=== PATIENT | female | born 1990 | race Caucasian/White ===

== ENCOUNTER 2018-01-03 09:55 | Emergency (ER) | payer OTHER ==
[2018-01-03] MEDS ORDERED: NS 1,000 ML IV ONE (10:32)
--- NOTE | 2018-01-03 10:32 | EDPHY ---
H & P Time Seen by Provider: 01/03/18 10:21 HPI/ROS: CHIEF COMPLAINT: Abdominal pain HISTORY OF PRESENT ILLNESS: 27-year-old female presents to the emergency department with right lower quadrant abdominal pain that began abruptly this morning. The patient thought that she had mild cramping last night but this resolved. She slept fine and then woke up this morning with severe sharp stabbing pain in her right lower quadrant. She tried going to the bathroom and felt that the pain has slightly improved but then became extremely nauseous and had a near syncopal episode. Those symptoms have now resolved. She continues to have ongoing right-sided abdominal pain. No flank pain. No urinary symptoms. She has a Mirena IUD and denies . Denies chest pain or difficulty breathing. Denies dysuria, urgency or frequency with urination. REVIEW OF SYSTEMS: Constitutional: No fever, no chills. Eyes: No double or blurry vision. ENT: No sore throat. Respiratory: No cough, no shortness of breath. Cardiac: No chest pain. Gastrointestinal: Abdominal pain as above. No vomiting or diarrhea Genitourinary: No dysuria. Musculoskeletal: No neck or back pain. Skin: No rashes. Neurological: No headache. Past Medical/Surgical History: Mirena IUD Social History: Single Smoking Status: Never smoked Physical Exam: General Appearance: Alert, no distress. Afebrile. Eyes: Pupils equal and round. Extraocular motions are all intact. ENT: Mouth: Mucous membranes moist. Respiratory: No wheezing, rhonchi, or rales, lungs are clear to auscultation. Cardiovascular: Regular rate and rhythm. Gastrointestinal: Abdomen is soft. She has tenderness with palpation in the right lower quadrant. Nontender to palpate the suprapubic area. No rebound, guarding or masses noted. No CVA tenderness bilaterally. Neurological: Alert and oriented x 3, cranial nerves II through XII grossly intact Skin: Warm and dry, no rashes. Musculoskeletal: Nontender to palpate along the cervical, thoracic or lumbar spine. Neck is supple. Extremities: Full range of motion and no peripheral edema. Psychiatric: Patient is oriented X 3, there is no agitation. Constitutional: Initial Vital Signs Temperature (C) 37.0 C 01/03/18 10:01 Heart Rate 96 01/03/18 10:01 Respiratory Rate 18 01/03/18 10:01 Blood Pressure 113/74 01/03/18 10:01 O2 Sat (%) 98 01/03/18 10:01 O2 Delivery Mode Room Air Allergies/Adverse Reactions: penicillin G Allergy (Verified 01/03/18 10:05) Home Medications: Medication Instructions Recorded Clindamycin HCl [Clindamycin] 300 mg PO 01/03/18 Lisdexamfetamine Dimesylate 30 mg PO 01/03/18 [Vyvanse] Medical Decision Making - Diagnostics Imaging Results: Imaging Impressions Abdomen Ultrasound 01/03/18 10:31 Impression: Appendix not identified. Findings and recommendations discussed with Emergency Department physician, Johanna Carranza PA-C at 1146 hours on January 03, 2018. Final report concurs with initial preliminary interpretation. Pelvic/Renal Ultrasound 01/03/18 10:31 Impression: 1. Right ovarian 2 complex cysts probably representing hemorrhagic cysts, with the largest measuring 4.3 x 2.9 x 2 cm. 2. Small amount of free fluid in the right side of the pelvis. 3. No ovarian torsion. 4. Small amount of free fluid adjacent to the right adnexa. Findings and recommendations discussed with Emergency Department physician, Johanna Carranza PA-C at 1125 hours on January 03, 2018. Final report concurs with initial preliminary interpretation. Imaging: Discussed imaging studies w/ scallop shucker Radiologist ED Course/Re-evaluation: 27-year-old female presents to the emergency department with abdominal pain. Is concerned about possible ovarian cyst. Pelvic ultrasound reveals complex ovarian cyst on the right ovary measuring 4 x 3 x 2 cm. No evidence of torsion. Abdominal ultrasound unable to visualize appendix. I offered CT imaging of the abdomen pelvis since appendix was not visualized, however the patient declined. Patient was treated with IV Toradol and was feeling better. She was given OBGYN referral. She was instructed to return to the emergency department if she developed any change in symptoms or felt worse. Differential Diagnosis: Including but not limited to acute appendicitis, ovarian cyst, ovarian torsion, urinary tract infection, pyelonephritis, kidney stone - Data Points Laboratory Results: Laboratory Results 01/03/18 10:24 01/03/18 10:24 01/03/18 01/03/18 01/03/18 10:24 10:24 10:24 WBC RBC Hgb Hct MCV MCH MCHC RDW Plt Count MPV Neut % (Auto) Lymph % (Auto) [place] % (Auto) Eos % (Auto) Baso % (Auto) Nucleat RBC Rel Count Absolute Neuts (auto) Absolute Lymphs (auto) Absolute Monos (auto) Absolute Eos (auto) Absolute Basos (auto) Absolute Nucleated RBC Immature Gran % Immature Gran # Sodium 142 mEq/L mEq/L (135-145) Potassium 4.3 mEq/L mEq/L (3.3-5.0) Chloride 110 mEq/L mEq/L (97-110) Carbon Dioxide 22 mEq/l mEq/l (22-31) Anion Gap 10 mEq/L mEq/L (8-16) BUN 13 mg/dL mg/dL (7-23) Creatinine 0.8 mg/dL mg/dL (0.6-1.0) Estimated GFR > 60 Glucose 84 mg/dL mg/dL (70-100) Calcium 9.4 mg/dL mg/dL (8.5-10.4) Beta HCG, Qual NEGATIVE Urine Color YELLOW Urine Appearance CLEAR Urine pH 6.0 (5.0-7.5) Ur Specific [place] 1.021 (1.002-1.030) Urine Protein NEGATIVE (NEGATIVE) Urine Ketones NEGATIVE (NEGATIVE) Urine Blood NEGATIVE (NEGATIVE) Urine Nitrate NEGATIVE (NEGATIVE) Urine Bilirubin NEGATIVE (NEGATIVE) Urine Urobilinogen NEGATIVE EU EU (0.2-1.0) Ur Leukocyte Esterase NEGATIVE (NEGATIVE) Urine RBC 15-25 /hpf H /hpf (0-3) Urine WBC 1-3 /hpf /hpf (0-3) Ur Epithelial Cells TRACE /lpf /lpf (NONE-1+) Urine Bacteria TRACE /hpf H /hpf (NONE SEEN) Urine Mucus TRACE /lpf /lpf (NONE-1+) Urine Glucose NEGATIVE (NEGATIVE) 01/03/18 10:24 WBC 5.51 10^3/uL 10^3/uL (3.80-9.50) RBC 5.00 10^6/uL 10^6/uL (4.18-5.33) Hgb 14.9 g/dL g/dL (12.6-16.3) Hct 43.5 % % (38.0-47.0) MCV 87.0 fL fL (81.5-99.8) MCH 29.8 pg pg (27.9-34.1) MCHC 34.3 g/dL g/dL (32.4-36.7) RDW 12.7 % % (11.5-15.2) Plt Count 210 10^3/uL 10^3/uL (150-400) MPV 10.4 fL fL (8.7-11.7) Neut % (Auto) 58.9 % % (39.3-74.2) Lymph % (Auto) 34.1 % % (15.0-45.0) [place] % (Auto) 6.2 % % (4.5-13.0) Eos % (Auto) 0.4 % L % (0.6-7.6) Baso % (Auto) 0.2 % L % (0.3-1.7) Nucleat RBC Rel Count 0.0 % % (0.0-0.2) Absolute Neuts (auto) 3.25 10^3/uL 10^3/uL (1.70-6.50) Absolute Lymphs (auto) 1.88 10^3/uL 10^3/uL (1.00-3.00) Absolute Monos (auto) 0.34 10^3/uL 10^3/uL (0.30-0.80) Absolute Eos (auto) 0.02 10^3/uL L 10^3/uL (0.03-0.40) Absolute Basos (auto) 0.01 10^3/uL L 10^3/uL (0.02-0.10) Absolute Nucleated RBC 0.00 10^3/uL 10^3/uL (0-0.01) Immature Gran % 0.2 % % (0.0-1.1) Immature Gran # 0.01 10^3/uL 10^3/uL (0.00-0.10) Sodium Potassium Chloride Carbon Dioxide Anion Gap BUN Creatinine Estimated GFR Glucose Calcium Beta HCG, Qual Urine Color Urine Appearance Urine pH Ur Specific [place] Urine Protein Urine Ketones Urine Blood Urine Nitrate Urine Bilirubin Urine Urobilinogen Ur Leukocyte Esterase Urine RBC Urine WBC Ur Epithelial Cells Urine Bacteria Urine Mucus Urine Glucose Medications Given: Discontinued Medications Sodium Chloride (Ns) 1,000 mls @ 0 mls/hr IV ONCE ONE PRN Reason: Wide Open Stop: 01/03/18 10:33 Last Admin: 01/03/18 10:36 Dose: 1,000 mls Ketorolac Tromethamine (Toradol) 30 mg IVP EDNOW ONE Stop: 01/03/18 12:15 Last Admin: 01/03/18 12:22 Dose: 30 mg Departure - Departure Disposition: Home, Routine, Self-Care Clinical Impression: Ovarian cyst Qualifiers: Laterality: right Qualified Code(s): N83.201 - Unspecified ovarian cyst, right side Condition: Good Instructions: Ovarian Cyst (ED) Additional Instructions: Ibuprofen 600 mg every 8 hr as needed for pain. You should not take any additional ibuprofen until bedtime tonight since your given IV Toradol in the emergency department. Follow-up with OBGYN regarding large complex cyst on her right ovary. Abdominal Pain: Return to the Emergency Department immediately for increasing pain, fever, vomiting, or if not completely better in 8-12 hours. Referrals: Tosha Hagan MD [Medical Doctor] - As per Instructions (OBGYN on-call)
[2018-01-03 10:39] LABS: PLATELET COUNT 210 10^3/uL (150-400)
[2018-01-03] MEDS ORDERED: KETOROLAC 30 MG/1 ML SDV IVP ONE (12:14)
[2018-01-03 12:50] VITALS: BP 125/75
== END 2018-01-03 12:50 | disposition home or self-care (01) ==
DX: N83.201 Unspecified ovarian cyst, right side (principal)
CPT/HCPCS: 96374; J1885